=== PATIENT | female | born 1985 | race American Indian/Alaskan Native ===

== ENCOUNTER 2017-01-28 13:12 | Inpatient (IN) | payer MEDICARE, OTHER ==
[2017-01-28] MEDS ORDERED: CATAPRES ONE (13:57)
[2017-01-28] MEDS ORDERED: CATAPRES PO ONE (14:02)
[2017-01-28] MEDS ORDERED: PHENERGAN PR ONE ×2 (14:32→15:31)
[2017-01-28] MEDS ORDERED: NORMODYNE IV ONE ×2 (15:29→17:40)
[2017-01-28 15:40] LABS: Albumin 3.9 g/dL (3.9-5); Albumin/Globulin Ratio 1.5 %; BUN/Creatinine Ratio 5.56; Bilirubin,Total 0.3 mg/dL (0.1-1.2); Calcium 9.2 mg/dL (8.4-10.2); Chloride 93.6 mmol/L (98-107); Potassium 4.7 mmol/L (3.6-5.0); Total Protein 6.5 g/dL (6.3-8.2)
[2017-01-28] MEDS ORDERED: ZOFRAN IV ONE (15:44)
[2017-01-28] MEDS ORDERED: BENADRYL IV ONE (15:44)
[2017-01-28] MEDS ORDERED: DILAUDID IV ONE (15:44)
[2017-01-28] MEDS ORDERED: HALDOL IM ONE (16:13)
[2017-01-28] MEDS ORDERED: PEPCID IV ONE (16:13)
[2017-01-28] MEDS ORDERED: CARAFATE PO ONE (16:13)
--- NOTE | 2017-01-28 16:15 | Emergency Department Report ---
ED General Adult HPI - General Chief complaint: Abdominal Pain Stated complaint: ABD PAIN Time Seen by Provider: 01/28/17 16:07 Source: patient, RN notes reviewed Mode of arrival: Ambulatory Limitations: Other (patient is a poor historian) - History of Present Illness Initial comments: This is a 31-year-old female. The patient is previously unknown to this provider. Patient reports that she just got here from [place] earlier on this morning. She reports that she was receiving medical care at [facility] in [place]. Patient indicated to me that she is supposed to follow up for dialysis in [place], but she does not know the name of her assigned nephrology specialist. She presents to the ER with diffuse abdominal pain. The pain is achy and sharp. It increases with palpation and range of motion. It decreases with rest. There is no headache or neck pain. There is no chest pain. There is chronic shortness of breath which is not a new, worsening or different, patient also describes nausea and vomiting. She indicates no irritative/obstructive urinary symptoms, and she denies hematemesis, bright red blood per rectum. -: Gradual Location: abdomen Quality: aching Consistency: constant Improves with: medication, rest Worsens with: eating Associated Symptoms: malaise, nausea/vomiting, weakness - Related Data Allergies Allergy/AdvReac Type Severity Reaction Status Date / Time No Known Allergies Allergy Verified 01/28/17 13:20 ED Review of Systems ROS: Stated complaint: ABD PAIN Other details as noted in HPI Constitutional: malaise, weakness. denies: fever Eyes: denies: eye discharge ENT: denies: hearing loss Respiratory: denies: cough Cardiovascular: denies: chest pain Gastrointestinal: abdominal pain, nausea, vomiting Genitourinary: as per HPI. denies: dysuria Musculoskeletal: denies: back pain Skin: denies: lesions Neurological: weakness ED Past Medical Hx - Past Medical History Previous Medical History?: No Hx Hypertension: Yes Hx Diabetes: Yes Hx Renal Disease: Yes - Social History Smoking Status: Never Smoker Substance Use Type: None ED Physical Exam - General Limitations: No Limitations General appearance: alert, in distress - Head Head exam: Present: atraumatic, normocephalic - Eye Eye exam: Present: normal appearance, EOMI. Absent: nystagmus - ENT ENT exam: Present: normal exam, normal orophraynx, mucous membranes moist, normal external ear exam - Neck Neck exam: Present: normal inspection, full ROM. Absent: tenderness, meningismus - Respiratory Respiratory exam: Present: normal lung sounds bilaterally. Absent: respiratory distress, wheezes, rales, chest wall tenderness, accessory muscle use, decreased breath sounds, prolonged expiratory - Cardiovascular Cardiovascular Exam: Present: normal rhythm, tachycardia, normal heart sounds. Absent: systolic murmur, diastolic murmur, rubs, gallop - GI/Abdominal GI/Abdominal exam: Present: soft, tenderness, normal bowel sounds, other (there is diffuse abdominal tenderness, there is no rebound, guarding or peritoneal signs.). Absent: distended, guarding, rebound, rigid, pulsatile mass - Extremities Exam Extremities exam: Present: normal inspection, full ROM, normal capillary refill , other (2+ pulses noted in the bilateral upper and lower extremities. AV fistula appreciated in the right upper extremity, positive thrill, no redness, pus or streaking). Absent: pedal edema, joint swelling, calf tenderness - Back Exam Back exam: Present: normal inspection, full ROM. Absent: tenderness, CVA tenderness (R), CVA tenderness (L), muscle spasm, paraspinal tenderness, vertebral tenderness - Neurological Exam Neurological exam: Present: alert, oriented X3, other (Extraocular movements intact. Tongue midline. No facial droop. Facial sensation intact to light touch in the V1, V2, V3 distribution bilaterally. 5 and 5 strength in 4 extremities.. Sensation is intact to light touch in 4 extremities.). Absent: motor sensory deficit - Psychiatric Psychiatric exam: Present: normal affect, normal mood - Skin Skin exam: Present: warm, dry, intact, normal color. Absent: rash ED Course Vital Signs 01/28/17 01/28/17 01/28/17 13:15 13:18 13:34 Temperature 98.5 F 98.3 F Pulse Rate 116 H 112 H Respiratory 24 19 Rate Blood Pressure 242/121 Blood Pressure [Left] O2 Sat by Pulse 96 98 100 Oximetry 01/28/17 01/28/17 01/28/17 13:45 14:01 14:10 Temperature Pulse Rate 113 H 112 H Respiratory 49 H 12 Rate Blood Pressure 263/127 268/127 263/127 Blood Pressure [Left] O2 Sat by Pulse 100 100 Oximetry 01/28/17 01/28/17 01/28/17 14:15 14:31 15:12 Temperature Pulse Rate Respiratory 21 20 15 Rate Blood Pressure 250/121 250/121 250/121 Blood Pressure [Left] O2 Sat by Pulse 96 Oximetry 01/28/17 01/28/17 01/28/17 15:18 16:10 16:18 Temperature 98.7 F Pulse Rate 105 H 100 H Respiratory 18 Rate Blood Pressure 231/128 251/128 Blood Pressure 231/128 [Left] O2 Sat by Pulse 98 Oximetry 01/28/17 01/28/17 01/28/17 16:20 16:30 16:53 Temperature Pulse Rate Respiratory 18 Rate Blood Pressure 235/113 235/113 Blood Pressure [Left] O2 Sat by Pulse 80 L Oximetry 01/28/17 01/28/17 01/28/17 17:00 17:15 17:30 Temperature Pulse Rate Respiratory Rate Blood Pressure 233/118 244/114 249/109 Blood Pressure [Left] O2 Sat by Pulse 94 72 L 77 L Oximetry 01/28/17 01/28/17 01/28/17 17:45 18:01 18:09 Temperature Pulse Rate 106 H Respiratory 17 Rate Blood Pressure 237/122 260/119 Blood Pressure 168/93 [Left] O2 Sat by Pulse 78 L 81 L 97 Oximetry 01/28/17 01/28/17 01/28/17 18:10 18:15 18:30 Temperature Pulse Rate 106 H 107 H Respiratory 28 H 17 Rate Blood Pressure 169/93 221/100 226/122 Blood Pressure [Left] O2 Sat by Pulse 92 98 Oximetry 01/28/17 01/28/17 01/28/17 18:45 19:00 19:15 Temperature Pulse Rate Respiratory 20 15 24 Rate Blood Pressure 226/122 225/123 239/127 Blood Pressure [Left] O2 Sat by Pulse 100 98 100 Oximetry 01/28/17 01/28/17 01/28/17 19:30 19:46 20:00 Temperature Pulse Rate Respiratory 26 H Rate Blood Pressure 235/117 208/117 247/120 Blood Pressure [Left] O2 Sat by Pulse 100 92 100 Oximetry 01/28/17 01/28/17 01/28/17 20:15 20:30 20:45 Temperature Pulse Rate Respiratory Rate Blood Pressure 214/113 171/82 Blood Pressure [Left] O2 Sat by Pulse 100 100 100 Oximetry ED Medical Decision Making - Lab Data Result diagrams: 01/28/17 16:37 01/28/17 15:07 Vital Signs 01/28/17 01/28/17 01/28/17 13:15 13:18 13:34 Temperature 98.5 F 98.3 F Pulse Rate 116 H 112 H Respiratory 24 19 Rate Blood Pressure 242/121 Blood Pressure [Left] O2 Sat by Pulse 96 98 100 Oximetry 01/28/17 01/28/17 01/28/17 13:45 14:01 14:10 Temperature Pulse Rate 113 H 112 H Respiratory 49 H 12 Rate Blood Pressure 263/127 268/127 263/127 Blood Pressure [Left] O2 Sat by Pulse 100 100 Oximetry 01/28/17 01/28/17 01/28/17 14:15 14:31 15:12 Temperature Pulse Rate Respiratory 21 20 15 Rate Blood Pressure 250/121 250/121 250/121 Blood Pressure [Left] O2 Sat by Pulse 96 Oximetry 01/28/17 01/28/17 01/28/17 15:18 16:10 16:18 Temperature 98.7 F Pulse Rate 105 H 100 H Respiratory 18 Rate Blood Pressure 231/128 251/128 Blood Pressure 231/128 [Left] O2 Sat by Pulse 98 Oximetry 01/28/17 01/28/17 01/28/17 16:20 16:30 16:53 Temperature Pulse Rate Respiratory 18 Rate Blood Pressure 235/113 235/113 Blood Pressure [Left] O2 Sat by Pulse 80 L Oximetry 01/28/17 01/28/17 01/28/17 17:00 17:15 17:30 Temperature Pulse Rate Respiratory Rate Blood Pressure 233/118 244/114 249/109 Blood Pressure [Left] O2 Sat by Pulse 94 72 L 77 L Oximetry 01/28/17 01/28/17 01/28/17 17:45 18:01 18:09 Temperature Pulse Rate 106 H Respiratory 17 Rate Blood Pressure 237/122 260/119 Blood Pressure 168/93 [Left] O2 Sat by Pulse 78 L 81 L 97 Oximetry 01/28/17 01/28/17 01/28/17 18:10 18:15 18:30 Temperature Pulse Rate 106 H 107 H Respiratory 28 H 17 Rate Blood Pressure 169/93 221/100 Blood Pressure [Left] O2 Sat by Pulse 92 97 Oximetry Lab Results 01/28/17 01/28/17 01/28/17 Range/Units 15:07 15:07 16:37 WBC 11.5 H (4.5-11.0) K/mm3 RBC 3.15 L (3.65-5.03) M/mm3 Hgb 9.0 L (10.1-14.3) gm/dl Hct 28.7 L (30.3-42.9) % MCV 91 (79-97) fl MCH 29 (28-32) pg MCHC 32 (30-34) % RDW 14.1 (13.2-15.2) % Plt Count 241 (140-440) K/mm3 Lymph % (Auto) 9.2 L (13.4-35.0) % [place] % (Auto) 4.3 (0.0-7.3) % Eos % (Auto) 1.2 (0.0-4.3) % Baso % (Auto) 0.8 (0.0-1.8) % Lymph # 1.1 L (1.2-5.4) K/mm3 [place] # 0.5 (0.0-0.8) K/mm3 Eos # 0.1 (0.0-0.4) K/mm3 Baso # 0.1 (0.0-0.1) K/mm3 Seg Neutrophils % 84.5 H (40.0-70.0) % Seg Neutrophils # 9.7 H (1.8-7.7) K/mm3 Sodium 136 L (137-145) mmol/L Potassium 4.7 (3.6-5.0) mmol/L Chloride 93.6 L (98-107) mmol/L Carbon Dioxide 19 L (22-30) mmol/L Anion Gap 28 mmol/L BUN 44 H (7-17) mg/dL Creatinine 7.9 H (0.7-1.2) mg/dL Estimated GFR 7 ml/min BUN/Creatinine Ratio 5.56 % Glucose 395 H (65-100) mg/dL Calcium 9.2 (8.4-10.2) mg/dL Total Bilirubin 0.30 (0.1-1.2) mg/dL AST 17 (5-40) units/L ALT 24 (7-56) units/L Alkaline Phosphatase 134 H (35-129) units/L Troponin T (0.00-0.029) ng/mL Total Protein 6.5 (6.3-8.2) g/dL Albumin 3.9 (3.9-5) g/dL Albumin/Globulin Ratio 1.5 % Triglycerides (2-149) mg/dL Cholesterol (50-199) mg/dL LDL Cholesterol Direct (50-130) mg/dL HDL Cholesterol (40-59) mg/dL Cholesterol/HDL Ratio % Lipase 106 H (13-60) units/L HCG, Quant < 2 (0-4) mIU/mL 01/28/17 Range/Units 16:37 WBC (4.5-11.0) K/mm3 RBC (3.65-5.03) M/mm3 Hgb (10.1-14.3) gm/dl Hct (30.3-42.9) % MCV (79-97) fl MCH (28-32) pg MCHC (30-34) % RDW (13.2-15.2) % Plt Count (140-440) K/mm3 Lymph % (Auto) (13.4-35.0) % [place] % (Auto) (0.0-7.3) % Eos % (Auto) (0.0-4.3) % Baso % (Auto) (0.0-1.8) % Lymph # (1.2-5.4) K/mm3 [place] # (0.0-0.8) K/mm3 Eos # (0.0-0.4) K/mm3 Baso # (0.0-0.1) K/mm3 Seg Neutrophils % (40.0-70.0) % Seg Neutrophils # (1.8-7.7) K/mm3 Sodium (137-145) mmol/L Potassium (3.6-5.0) mmol/L Chloride (98-107) mmol/L Carbon Dioxide (22-30) mmol/L Anion Gap mmol/L BUN (7-17) mg/dL Creatinine (0.7-1.2) mg/dL Estimated GFR ml/min BUN/Creatinine Ratio % Glucose (65-100) mg/dL Calcium (8.4-10.2) mg/dL Total Bilirubin (0.1-1.2) mg/dL AST (5-40) units/L ALT (7-56) units/L Alkaline Phosphatase (35-129) units/L Troponin T 0.209 H* (0.00-0.029) ng/mL Total Protein (6.3-8.2) g/dL Albumin (3.9-5) g/dL Albumin/Globulin Ratio % Triglycerides 193 H (2-149) mg/dL Cholesterol 192 (50-199) mg/dL LDL Cholesterol Direct 82 (50-130) mg/dL HDL Cholesterol 72 H (40-59) mg/dL Cholesterol/HDL Ratio 2.66 % Lipase (13-60) units/L HCG, Quant (0-4) mIU/mL - EKG Data -: EKG Interpreted by Wi - EKG Data 01/28/17 18:53 Normal sinus, 95 bpm, borderline rightward axis, T-wave inversion in aVL, biphasic T-wave in V2, peak T waves in the lateral leads, borderline high left ventricular voltage, abnormal EKG, not morphologically consistent with STEMI. - Radiology Data Radiology results: report reviewed, image reviewed Noncontrast CT scan of the abdomen and pelvis is negative for acute disease. X-ray chest demonstrates pulmonary vascular congestion. Cardiomegaly is noted. Cardiomegaly is identified on CT scan of the abdomen/pelvis, subcutaneous edema is noted, small amount of ascites is noted. There is a unilateral right kidney. - Medical Decision Making Differential diagnosis: Hypertensive urgency, chronic renal insufficiency, narcotic bowel syndrome, cyclic vomiting syndrome, diabetic gastroparesis, GERD/ gastritis Assessment and plan: 31-year-old female, reports that she recently moved here from [place], does not have reliable outpatient dialysis follow-up, CT scan of the abdomen and pelvis to the [facility] surgical disease, required multiple rounds of IV blood pressure medication, may have a component of diabetic gastroparesis. Elevated troponin is appreciated, this is most likely secondary to chronic renal insufficiency. We attempted to contact medical records department at [facility] in [place], however they're closed today, and we are unable to obtain patient's medical records. Patient will require admission for blood pressure control, and inability to tolerate liquid feeds. Case is discussed with the Hospital physician, Dr. Terry, who accepts the patient to his service. Case is discussed with nephrology on-call, Dr. Carcamo, who agrees with plan for admission, and he indicates he will follow in consultation. Abdominal pain is most likely secondary to subcutaneous edema secondary to renal insufficiency. X-ray the chest suggest pulmonary vascular congestion, I doubt infectious etiology given the lack of focal pulmonary findings, and CT scan of the abdomen and pelvis does not suggest pneumonia as well on the lung bases. Critical care attestation.: If time is entered above; I have spent that time in minutes in the direct care of this critically ill patient, excluding procedure time. ED Disposition Clinical Impression: Hypertensive urgency, Intractable abdominal pain Disposition: OP ADMIT IP TO THIS HOSP Is pt being admited?: Yes Condition: Good
[2017-01-28 16:47] LABS: Basophils % (Auto) 0.8 % (0.0-1.8); Eosinophils % (Auto) 1.2 % (0.0-4.3); Hematocrit 28.7 % (30.3-42.9); Mean Corpuscular HGB Conc 32 % (30-34); Mean Corpuscular Hemoglobin 29 pg (28-32); Mean Corpuscular Volume 91 fl (79-97); Platelet Count 241 K/mm3 (140-440); Red Blood Count 3.15 M/mm3 (3.65-5.03); Red Cell Distribution Width 14.1 % (13.2-15.2); White Blood Count 11.5 K/mm3 (4.5-11.0)
--- NOTE | 2017-01-28 17:02 | Cat Scan Report ---
FINAL REPORT EXAM: CT ABDOMEN PELVIS WO CON HISTORY: abd pain TECHNIQUE: CT abdomen and pelvis with oral and intravenous contrast PRIORS: None. FINDINGS: No acute abnormality identified in the lung bases. No focal abnormality identified within the liver parenchyma. The spleen demonstrates normal size and attenuation. No pancreatic abnormalities seen. There is unilateral right kidney. Renal vascular calcifications are present. There is some atherosclerotic calcifications also noted at the SMA and abdominal aorta. Abdominal aorta is normal in caliber. No pathologically enlarged lymph nodes are identified. No signs of free fluid or free air No evidence of small bowel dilatation. The appendix is identified and is normal in size no adjacent inflammatory change seen. Urinary bladder is unremarkable. There is small amount of free fluid present in the pelvis. Small amount of free fluid is also seen within the right upper quadrant and Morison's pouch. There is subcutaneous edema within the soft tissues of the abdomen. IMPRESSION: Small amount of ascites. No specific etiology identified Subcutaneous edema Unilateral right kidney. Atherosclerotic changes along with renal vascular calcifications.
--- NOTE | 2017-01-28 17:14 | XRay Report ---
FINAL REPORT EXAM: XR CHEST 1V AP HISTORY: upper abd pain htn TECHNIQUE: Chest single AP view PRIORS: Correlated with a prior CT abdomen and pelvis of January 28, 2017 FINDINGS: Cardiac silhouette is prominent in size. There is bilateral pulmonary vascular congestion. There is diffuse bilateral interstitial prominence. Small right effusion seen on the CT is not readily identifiable on the chest radiograph. IMPRESSION: Prominent heart size is borderline cardiomegaly Pulmonary vascular congestion with interstitial prominence. Findings likely reflect pulmonary venous hypertension with edema which could be cardiogenic in origin. Superimposed infectious process is difficult to exclude
[2017-01-28] MEDS ORDERED: APRESOLINE IV ONE (18:00)
[2017-01-28] MEDS ORDERED: APRESOLINE ONE (18:07)
[2017-01-28] MEDS: CARDENE 50 MG in NACL 0.9% 250ML 230 ML IV SCH (20:07)
[2017-01-28] MEDS: DILAUDID IV PRN (20:26)
[2017-01-28] MEDS ORDERED: DILAUDID ONE (20:27)
[2017-01-28] MEDS ORDERED: NACL 0.9% 100 ML IV PRN (20:44)
--- NOTE | 2017-01-28 23:54 | History and Physical Report ---
History of Present Illness Date of examination: 01/28/17 Date of admission: 01/28/17 17:42 Medications and Allergies Allergies Allergy/AdvReac Type Severity Reaction Status Date / Time No Known Allergies Allergy Verified 01/28/17 13:20 Active Meds: Active Medications Hydromorphone HCl (Dilaudid) 0.5 mg IV Q3H PRN PRN Reason: Pain , Severe (7-10) Last Admin: 01/28/17 20:26 Dose: 0.5 mg Nicardipine HCl 50 mg/ Sodium (Chloride) 250 mls @ 25 mls/hr IV TITR JESUS; 5 MG/ HR PRN Reason: Protocol Last Titration: 01/28/17 20:26 Dose: 7.5 mg/hr, 37.5 mls/hr Sodium Chloride (Nacl 0.9%) 100 mls @ 999 mls/hr IV DEE PRN PRN Reason: Hypotension Exam - Constitutional Vitals: Temp Pulse Resp BP Pulse Ox 98.9 F 107 H 26 H 171/82 100 01/28/17 21:00 01/28/17 18:15 01/28/17 19:30 01/28/17 20:30 01/28/17 20:45 Results - Labs CBC & Chem 7: 01/28/17 16:37 01/28/17 15:07 Labs: Laboratory Last Values WBC 11.5 K/mm3 (4.5-11.0) H 01/28/17 16:37 RBC 3.15 M/mm3 (3.65-5.03) L 01/28/17 16:37 Hgb 9.0 gm/dl (10.1-14.3) L 01/28/17 16:37 Hct 28.7 % (30.3-42.9) L 01/28/17 16:37 MCV 91 fl (79-97) 01/28/17 16:37 MCH 29 pg (28-32) 01/28/17 16:37 MCHC 32 % (30-34) 01/28/17 16:37 RDW 14.1 % (13.2-15.2) 01/28/17 16:37 Plt Count 241 K/mm3 (140-440) 01/28/17 16:37 Lymph % (Auto) 9.2 % (13.4-35.0) L 01/28/17 16:37 [place] % (Auto) 4.3 % (0.0-7.3) 01/28/17 16:37 Eos % (Auto) 1.2 % (0.0-4.3) 01/28/17 16:37 Baso % (Auto) 0.8 % (0.0-1.8) 01/28/17 16:37 Lymph # 1.1 K/mm3 (1.2-5.4) L 01/28/17 16:37 [place] # 0.5 K/mm3 (0.0-0.8) 01/28/17 16:37 Eos # 0.1 K/mm3 (0.0-0.4) 01/28/17 16:37 Baso # 0.1 K/mm3 (0.0-0.1) 01/28/17 16:37 Seg Neutrophils % 84.5 % (40.0-70.0) H 01/28/17 16:37 Seg Neutrophils # 9.7 K/mm3 (1.8-7.7) H 01/28/17 16:37 Sodium 136 mmol/L (137-145) L 01/28/17 15:07 Potassium 4.7 mmol/L (3.6-5.0) 01/28/17 15:07 Chloride 93.6 mmol/L (98-107) L 01/28/17 15:07 Carbon Dioxide 19 mmol/L (22-30) L 01/28/17 15:07 Anion Gap 28 mmol/L 01/28/17 15:07 BUN 44 mg/dL (7-17) H 01/28/17 15:07 Creatinine 7.9 mg/dL (0.7-1.2) H 01/28/17 15:07 Estimated GFR 7 ml/min 01/28/17 15:07 BUN/Creatinine Ratio 5.56 % 01/28/17 15:07 Glucose 395 mg/dL (65-100) H 01/28/17 15:07 Calcium 9.2 mg/dL (8.4-10.2) 01/28/17 15:07 Total Bilirubin 0.30 mg/dL (0.1-1.2) 01/28/17 15:07 AST 17 units/L (5-40) 01/28/17 15:07 ALT 24 units/L (7-56) 01/28/17 15:07 Alkaline Phosphatase 134 units/L (35-129) H 01/28/17 15:07 Troponin T 0.209 ng/mL (0.00-0.029) H* 01/28/17 16:37 Total Protein 6.5 g/dL (6.3-8.2) 01/28/17 15:07 Albumin 3.9 g/dL (3.9-5) 01/28/17 15:07 Albumin/Globulin Ratio 1.5 % 01/28/17 15:07 Triglycerides 193 mg/dL (2-149) H 01/28/17 16:37 Cholesterol 192 mg/dL (50-199) 01/28/17 16:37 LDL Cholesterol Direct 82 mg/dL (50-130) 01/28/17 16:37 HDL Cholesterol 72 mg/dL (40-59) H 01/28/17 16:37 Cholesterol/HDL Ratio 2.66 % 01/28/17 16:37 Lipase 106 units/L (13-60) H 01/28/17 15:07 HCG, Quant < 2 mIU/mL (0-4) 01/28/17 15:07
[2017-01-29] MEDS: COREG PO SCH ×3 (00:15→22:59)
[2017-01-29] MEDS: CARDENE 50 MG in NACL 0.9% 250ML 230 ML IV SCH (04:54)
--- NOTE | 2017-01-29 07:51 | Event Note ---
Date: 01/28/17 See H/p in reports HTN emergency ESRD on HD Recently moved from [place] without HD arrangements made Case mgmt to arrange for HD as outpatient
--- NOTE | 2017-01-29 09:18 | History and Physical Report ---
CHIEF COMPLAINT: Abdominal pain of 1 day duration. HISTORY OF PRESENT ILLNESS: A 31-year-old -[place] female who recently moved from [place] without arranging for hemodialysis as outpatient, comes in for abdominal pain of 1 day duration. 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 Abdominal pain is diffuse, occasionally sharp, about 10/10, increases with palpation and range of motion. Pain worsened with palpation. No nausea, no vomiting. Also, shortness of breath present. The patient did not get dialysis for at least 1 week. The patient not able to tell me the cause of her renal failure. Orthopnea present. Also, her blood pressure has been running high recently. PAST MEDICAL HISTORY: Significant for end-stage renal disease, hypertension, diabetes. PAST SURGICAL HISTORY: AV fistula. SOCIAL HISTORY: Does not smoke. No alcohol, no recreational drugs. FAMILY HISTORY: Significant for hypertension. REVIEW OF SYSTEMS: All 14-point review of systems is done, other than abdominal pain, nausea, vomiting occasionally, review of systems is essentially negative. A 14-point review of systems done. PHYSICAL EXAMINATION: GENERAL: Young female, in slight distress secondary to pain. VITAL SIGNS: Blood pressure was 230/113 initially. Pulse is 101, temperature is 98, respiratory rate is 15, sats are 100%. HEENT: Unremarkable. Slightly pale mucous membranes. NECK: Supple. No lymphadenopathy, no thyromegaly. LUNGS: Clear to auscultation and percussion. Good air entry. CARDIOVASCULAR: S1, S2 heard. No gallop, no murmur, no rub. Apical impulse in left fifth intercostal space and midclavicular line. ABDOMEN: Soft, slightly tender in the periumbilical area, but no guarding. No rigidity. Bowel sounds are normal. EXTREMITIES: Good pedal pulses. No pedal edema. CENTRAL NERVOUS SYSTEM: Alert and oriented x 4, nonfocal exam. LABORATORY DATA: Significant for hemoglobin of 9.0, hematocrit of 28.7, white count of . Sodium of 136, potassium of 4.7, chloride of 93.6, bicarbonate of 19, BUN and creatinine of 44 and 7.9, alkaline phosphatase is 134. Triglycerides are 193, HDL cholesterol is 72. Lipase is 106. Troponin is slightly elevated at 0.209. ASSESSMENT AND PLAN: 1. Hypertensive emergency. The patient was initially managed with IV hydralazine and IV labetalol. Because the blood pressure was not responding to IV labetalol and IV hydralazine, the patient was started on Cardene drip to titrate the blood pressure to at least 160/90. The patient also initiated on blood pressure medications in the form of losartan 100 mg daily, Coreg 12.5 p.o. b.i.d., and amlodipine 10 mg p.o. daily, which the patient to be discharged on those medications. Also, the patient to be compliant. 2. End-stage renal disease, on hemodialysis. Hemodialysis arrangement was not made by the patient when she moved from [place] to [place]. The patient to get hemodialysis arrangements to be made. Nephrology, Dr. Martínez consulted for continued hemodialysis in the hospital. 3. Elevated troponin, nonspecific secondary to end-stage renal disease. We will not do any further workup. 4. Acute abdominal pain, nonspecific, should resolve with hemodialysis. Surgical consult if necessary. CT of the abdomen if necessary. 5. Deep venous thrombosis prophylaxis, heparin 5000 q.12h. CRITICAL CARE STATEMENT: There is high probability of a clinically significant sudden or life-threatening deterioration of the cardiorespiratory systems required my full and direct attention, intervention, and personal management. The aggregate critical care time was 35 minutes. The time is in addition to time spent performing reported procedures, but include the followin. Data review and interpretation. 2. The patient's assessment and monitoring of vital signs. 3. Documentation. 4. Medication orders and management. JOB# [id number] JUDITH/MICHELLE
[2017-01-29] MEDS: DILAUDID IV PRN ×3 (09:30→18:13)
--- NOTE | 2017-01-29 09:37 | Progress Note ---
Assessment and Plan Malignant hypertension - Placed on a Cardizem drip on admission to titrate blood pressure below 1 60 x 90 - Also initiated losartan 100 MG daily, Coreg 12.5 by mouth twice a day and amlodipine 10 mg by mouth daily - Continue to monitor BP, weaned off Cardene drip this am - Adjust BP meds needed End stage renal disease on hemodialysis - Patient recently moved from [place] to [place] for 2 weeks visit - Does not have outpatient dialysis set up yet - Consulted nephrology for dialysis - Notified child welfare caseworker for outpatient dialysis setup Elevated troponin - Likely secondary to decreased clearance from end-stage renal disease -Continue to trend, patient denies any chest pain - Monitor clinically Acute abdominal pain - likely from gastroparesis, CT abdomen and pelvis did not show any acute event - will place on reglan, continue to monitor for now Diabetes mellitus type 2 - Placed on an ADA diet - Start on sliding scale of insulin - Adjust insulin dose as needed DVT prophylaxis -Continue on heparin Brief history: This is a 31-year-old female with history of end stage renal disease on dialysis who recently moved from [place] presented to the hospital with sudden onset of abdominal pain, she also missed her dialysis for at least one week. Radiological data: Chest x-ray on 01/28/2017 showed prominent heart size, pulmonary vasculature congestion with interstitial prominence. CT scan of abdomen and pelvis on 01/28/2017 showed small ascites and subcutaneous edema. Unilateral right kidney atherosclerotic changes along with renal vasculature calcifications. No other specific etiology identified. Current meds: Generic Name Dose Route Start Last Admin Trade Name Freq PRN Reason Stop Dose Admin Amlodipine Besylate 10 mg 01/29/17 10:00 Norvasc PO QDAY [facility] Carvedilol 12.5 mg 01/29/17 01:00 01/29/17 00:15 Coreg PO Not Given BID JESUS Hydromorphone HCl 0.5 mg 01/28/17 20:20 01/28/17 20:26 Dilaudid IV 0.5 mg Q3H PRN Administration Pain , Severe (7-10) Nicardipine HCl 50 mg/ Sodium 250 mls @ 25 mls/hr 01/28/17 20:00 01/29/17 04: 54 Chloride IV 7.5 mg/hr TITR JESUS 37.5 mls/hr Protocol Administration 5 MG/HR Sodium Chloride 100 mls @ 999 mls/hr 01/28/17 20:44 Nacl 0.9% IV DEE PRN Hypotension Insulin Human Regular 0 units 01/29/17 09:00 Novolin R SUB-Q ACHS [facility] Protocol Losartan Potassium 100 mg 01/29/17 10:00 Cozaar PO QDAY [facility] Home Medications Medication Instructions Recorded Confirmed Last Taken Insulin Glargine [Lantus] 30 unit SUB-Q QHS 01/29/17 01/29/17 Unknown Insulin Lispro [HumaLOG VIAL] 10 units SQ AC 01/29/17 01/29/17 Unknown Subjective Date of service: 01/29/17 Interval history: Patient seen and examined. Medical records and medication list reviewed. No acute event overnight noted by the RN. Patient denies any chest pain or difficulty breathing. Patient is tolerating diet. states that she has h/o gastroparesis, off cardene drip since am Discussed plan of care at bedside with patient. Objective - Exam Narrative Exam: GENERAL: well-developed and well-nourished AAF lying on bed appeared to be in no discomfort. HEENT: Normocephalic. Atraumatic. No conjunctival congestion or icterus. Patient has moist mucous membranes. NECK: Supple. Trachea midline. CHEST/LUNGS: Clear to auscultated bilaterally, breathing nonlabored. No wheezes crackles or rhonchi. HEART/CARDIOVASCULAR: Regular in rate and rhythm. S1 and S2 positive. ABDOMEN: Abdomen is soft, nontender. Patient has normal bowel sounds. SKIN: There is no rash. Warm and dry. NEURO: No focal motor deficit. Follows command. MUSCULOSKELETAL: No joint effusion or tenderness. EXTRIMITY: No edema, no cyanosis or clubbing. PSYCH: Cooperative. - Constitutional Vitals: Vital Signs - 12hr 01/28/17 01/28/17 01/28/17 21:45 22:00 22:15 Temperature Pulse Rate 99 H 95 H 94 H Respiratory 14 13 13 Rate Blood Pressure 104/64 98/60 98/60 O2 Sat by Pulse 98 98 97 Oximetry 01/28/17 01/28/17 01/28/17 22:31 22:45 23:00 Temperature Pulse Rate 94 H 100 H 106 H Respiratory 13 19 18 Rate Blood Pressure 117/62 120/57 132/65 O2 Sat by Pulse 99 97 97 Oximetry 01/28/17 01/28/17 01/28/17 23:15 23:31 23:45 Temperature Pulse Rate 109 H 106 H 102 H Respiratory 21 14 15 Rate Blood Pressure 132/65 142/71 149/76 O2 Sat by Pulse 99 99 98 Oximetry 01/29/17 01/29/17 01/29/17 00:00 00:15 00:31 Temperature 98.8 F Pulse Rate 103 H 100 H 102 H Respiratory 13 14 17 Rate Blood Pressure 135/71 135/71 135/71 O2 Sat by Pulse 100 99 100 Oximetry 01/29/17 01/29/17 01/29/17 00:45 01:00 01:15 Temperature Pulse Rate 101 H 98 H 97 H Respiratory 13 12 13 Rate Blood Pressure 140/74 134/72 134/72 O2 Sat by Pulse 100 100 100 Oximetry 01/29/17 01/29/17 01/29/17 01:31 01:45 02:00 Temperature Pulse Rate 112 H 101 H 99 H Respiratory 17 14 15 Rate Blood Pressure 140/74 170/87 170/87 O2 Sat by Pulse 100 100 100 Oximetry 01/29/17 01/29/17 01/29/17 02:15 02:31 02:45 Temperature Pulse Rate 101 H 104 H 102 H Respiratory 14 15 12 Rate Blood Pressure 161/84 153/85 179/84 O2 Sat by Pulse 100 100 100 Oximetry 01/29/17 01/29/17 01/29/17 03:00 03:15 03:31 Temperature Pulse Rate 99 H 99 H 101 H Respiratory 13 13 14 Rate Blood Pressure 166/84 166/84 159/82 O2 Sat by Pulse 100 100 100 Oximetry 01/29/17 01/29/17 01/29/17 03:45 04:00 04:15 Temperature 98.9 F Pulse Rate 99 H 100 H 103 H Respiratory 12 14 13 Rate Blood Pressure 175/92 175/92 169/125 O2 Sat by Pulse 100 100 100 Oximetry 01/29/17 01/29/17 01/29/17 04:31 04:45 05:00 Temperature Pulse Rate 101 H 99 H 100 H Respiratory 14 14 15 Rate Blood Pressure 169/125 147/79 147/79 O2 Sat by Pulse 100 100 100 Oximetry 01/29/17 01/29/17 01/29/17 05:15 05:31 05:45 Temperature Pulse Rate 99 H 98 H 100 H Respiratory 13 14 14 Rate Blood Pressure 149/77 154/80 154/75 O2 Sat by Pulse 100 100 100 Oximetry 01/29/17 01/29/17 01/29/17 05:51 06:00 06:11 Temperature Pulse Rate 99 H 101 H 110 H Respiratory 15 15 20 Rate Blood Pressure 154/75 159/81 159/81 O2 Sat by Pulse 100 100 100 Oximetry 01/29/17 01/29/17 01/29/17 06:20 06:31 06:40 Temperature Pulse Rate 105 H 103 H 102 H Respiratory 16 13 10 L Rate Blood Pressure 163/75 163/75 156/76 O2 Sat by Pulse 100 100 100 Oximetry 01/29/17 01/29/17 01/29/17 06:51 07:00 07:11 Temperature Pulse Rate 100 H 100 H 100 H Respiratory 13 14 14 Rate Blood Pressure 156/76 156/76 150/80 O2 Sat by Pulse 100 100 100 Oximetry 01/29/17 01/29/17 01/29/17 07:20 07:31 07:40 Temperature Pulse Rate 100 H 99 H 99 H Respiratory 12 13 13 Rate Blood Pressure 141/74 141/74 147/72 O2 Sat by Pulse 100 100 100 Oximetry 01/29/17 01/29/17 01/29/17 07:51 08:00 08:11 Temperature Pulse Rate 103 H 100 H 98 H Respiratory 17 12 13 Rate Blood Pressure 147/72 147/73 147/73 O2 Sat by Pulse 100 100 100 Oximetry 01/29/17 01/29/17 08:30 08:46 Temperature 98.8 F Pulse Rate Respiratory Rate Blood Pressure O2 Sat by Pulse 100 Oximetry - Labs CBC & Chem 7: 01/28/17 16:37 01/28/17 15:07 Labs: Abnormal lab results 01/28/17 Range/Units 23:20 POC Glucose 459 H (70-105)
[2017-01-29] MEDS: COZAAR PO SCH (09:38)
[2017-01-29] MEDS: NORVASC PO SCH (09:39)
--- NOTE | 2017-01-29 11:09 | Consultation ---
History of Present Illness Consult date: 01/29/17 Requesting physician: TATA POE Reason for consult: other (Hypertensive Emergency) History of present illness: PULMONARY/CCM CONSULT NOTE (Full dictation # [id number]) Please see dictated notes for full details Medications and Allergies Allergies Allergy/AdvReac Type Severity Reaction Status Date / Time No Known Allergies Allergy Verified 01/28/17 13:20 Home Medications Medication Instructions Recorded Confirmed Last Taken Type Insulin Glargine [Lantus] 30 unit SUB-Q QHS 01/29/17 01/29/17 Unknown History Insulin Lispro [HumaLOG VIAL] 10 units SQ AC 01/29/17 01/29/17 Unknown History Active Meds: Active Medications Amlodipine Besylate (Norvasc) 10 mg PO QDAY [facility] Last Admin: 01/29/17 09:39 Dose: 10 mg Carvedilol (Coreg) 12.5 mg PO BID JESUS Last Admin: 01/29/17 09:39 Dose: 12.5 mg Hydromorphone HCl (Dilaudid) 0.5 mg IV Q3H PRN PRN Reason: Pain , Severe (7-10) Last Admin: 01/29/17 09:30 Dose: 0.5 mg Nicardipine HCl 50 mg/ Sodium (Chloride) 250 mls @ 25 mls/hr IV TITR JESUS; 5 MG/ HR PRN Reason: Protocol Last Admin: 01/29/17 04:54 Dose: 7.5 mg/hr, 37.5 mls/hr Sodium Chloride (Nacl 0.9%) 100 mls @ 999 mls/hr IV DEE PRN PRN Reason: Hypotension Insulin Human Regular (Novolin R) 0 units SUB-Q ACHS JESUS PRN Reason: Protocol Last Admin: 01/29/17 09:40 Dose: 3 units Losartan Potassium (Cozaar) 100 mg PO QDAY [facility] Last Admin: 01/29/17 09:38 Dose: 100 mg Physical Examination Vital signs: Vital Signs Temp Pulse Resp BP Pulse Ox 98.5 F 116 H 24 242/121 96 01/28/17 13:15 01/28/17 13:15 01/28/17 13:15 01/28/17 13:15 01/28/17 13:15 Results - Laboratory Findings CBC and BMP: 01/29/17 12:26 01/29/17 12:26 Abnormal lab findings: Abnormal Labs 01/28/17 23:20 POC Glucose 459 H
[2017-01-29 11:46] LABS: Bacteria,Urine 1+ /HPF (Negative); Bilirubin,Urine NEG (Negative); Blood,Urine NEG (Negative); Ketones,Urine TR mg/dL (Negative); Leukocyte Esterase,Urine NEG (Negative); Nitrite,Urine NEG (Negative); Urobilinogen,Urine < 2.0 mg/dL (<2.0)
[2017-01-29 11:48] LABS: Protein,Urine >500 mg/dL (Negative)
[2017-01-29] MEDS: ZOFRAN IV PRN (12:00)
[2017-01-29 12:36] LABS: Hematocrit 29.4 % (30.3-42.9); Hemoglobin 9.4 gm/dl (10.1-14.3)
[2017-01-29 13:30] LABS: BUN/Creatinine Ratio 6.15; Calcium 9.7 mg/dL (8.4-10.2); Chloride 97.5 mmol/L (98-107); Potassium 4.4 mmol/L (3.6-5.0)
--- NOTE | 2017-01-29 16:29 | XRay Report ---
AP CHEST: HISTORY: Cough, congestion Borderline cardiomegaly is present. Cardiomegaly and pulmonary venous congestion have resolved since 01/28/17 exam. The lungs are clear. No evidence for CHF or pneumothorax. IMPRESSION: Borderline heart size. Lungs clear.
[2017-01-29] MEDS ORDERED: INSULIN LISPRO 10 UNIT SQ SCH (16:36)
--- NOTE | 2017-01-29 17:17 | Consultation ---
History of Present Illness - Reason for Consult Consult date: 01/29/17 end stage renal disease, accelerated hypertension - History of Present Illness 31-year-old female with ESRD on HD on MWF schedule at HD center in [place], [place] here on a 2 week visit admitted after she presented with worsening SOB x 1 day duration and diffuse abdominal pain/in association with nausea and vomiting. The pain is achy and sharp. It increases with palpation and range of motion. It decreases with rest. Her last HD was on Sunday. Has AVF for dialysis. Past History Past Medical History: hypertension, other (ESRD x 3 years) Past Surgical History: Other (AVF) Social history: denies: smoking, alcohol abuse, IV drug use Family history: no significant family history. denies: CAD Medications and Allergies Allergies Allergy/AdvReac Type Severity Reaction Status Date / Time No Known Allergies Allergy Verified 01/28/17 13:20 Home Medications Medication Instructions Recorded Confirmed Last Taken Type Insulin Glargine [Lantus] 30 unit SUB-Q QHS 01/29/17 01/29/17 Unknown History Insulin Lispro [HumaLOG VIAL] 10 units SQ AC 01/29/17 01/29/17 Unknown History Active Meds: Active Medications Amlodipine Besylate (Norvasc) 10 mg PO QDAY [facility] Last Admin: 01/29/17 09:39 Dose: 10 mg Carvedilol (Coreg) 12.5 mg PO BID [facility] Last Admin: 01/29/17 09:39 Dose: 12.5 mg Famotidine (Pepcid) 20 mg PO DAILY [facility] Heparin Sodium (Porcine) (Heparin) 5,000 unit SUB-Q Q12HR [facility] Hydromorphone HCl (Dilaudid) 0.5 mg IV Q3H PRN PRN Reason: Pain , Severe (7-10) Last Admin: 01/29/17 12:30 Dose: 0.5 mg Sodium Chloride (Nacl 0.9%) 100 mls @ 999 mls/hr IV DEE PRN PRN Reason: Hypotension Insulin Aspart (Novolog) 10 units SUB-Q AC [facility] Insulin Detemir (Levemir) 15 units SUB-Q QHS [facility] Insulin Human Regular (Novolin R) 0 units SUB-Q ACHS JESUS PRN Reason: Protocol Last Admin: 01/29/17 14:13 Dose: Not Given Losartan Potassium (Cozaar) 100 mg PO QDAY [facility] Last Admin: 01/29/17 09:38 Dose: 100 mg Ondansetron HCl (Zofran) 4 mg IV Q6H PRN PRN Reason: Nausea And Vomiting Last Admin: 01/29/17 12:00 Dose: 4 mg Review of Systems Constitutional: no weight loss, no weight gain, no fever, no chills Ears, nose, mouth and throat: no ear pain, no ear discharge, no tinnitis, no nose pain, no nasal congestion Cardiovascular: shortness of breath, no chest pain, no orthopnea, no palpitations Respiratory: no hemoptysis, no wheezing Gastrointestinal: nausea, vomiting, no diarrhea, no constipation Genitourinary Female: urgency, no dysuria, no urinary frequency Rectal: no incontinence, no bleeding Musculoskeletal: no neck stiffness, no neck pain, no shooting arm pain Integumentary: no rash, no pruritis, no redness Neurological: no paralysis, no weakness, no numbness, no tingling Psychiatric: no anxiety, no memory loss, no change in sleep habits, no sleep disturbances Endocrine: no cold intolerance, no heat intolerance Hematologic/Lymphatic: no easy bruising, no easy bleeding Exam - Vital Signs Vital signs: Vital Signs Temp Pulse Resp BP Pulse Ox 98.5 F 116 H 24 242/121 96 01/28/17 13:15 01/28/17 13:15 01/28/17 13:15 01/28/17 13:15 01/28/17 13:15 - General Appearance General appearance: well-developed, well-nourished, appears stated age EENT: PERRL, mucous membranes moist Neck: Present: neck supple, trachea midline. Absent: JVD/HJR, Masses Respiratory: Rales, Other (no wheezing ) Heart: regular, normal heart rate, S1S2, no murmurs Gastrointestinal: Present: normoactive bowel sounds. Absent: tenderness, distended Integumentary: no rash, warm and dry Neurologic: no focal deficit, alert and oriented x3, gait normal, strength 5/5 Musculoskeletal: Absent: deformities, joint swelling Psychiatric: mood/affect appropriate, cooperative Results - Lab Results 01/29/17 12:26 01/29/17 12:26 Most recent lab results Calcium 9.7 mg/dL (8.4-10.2) 01/29/17 12:26 Assessment and Plan 1. ESRD on HD 2, Malignant HTN 3. Fluid overload 4. Anemia of ESRD 5. Nausea/vomiting Plan: HD today 3-4 L fluid removal requested Epogen on dialysis Wean off Cardene drip after dialysis Resume her home B meds-Clonidine patch, Hydrazine and Labetalol Discussed with sports manager--out pt HD has been arranged by her [place] [facility] in a center in [place]. Thank you for the consult
[2017-01-29] MEDS: PEPCID PO SCH (19:37)
[2017-01-29] MEDS ORDERED: NON-FORMULARY (Insulin Glargine 15 UNIT) SUB-Q SCH (22:00)
[2017-01-29] MEDS: HEPARIN SUB-Q SCH (23:03)
[2017-01-29] MEDS: LEVEMIR SUB-Q SCH (23:04)
[2017-01-30] MEDS: DILAUDID IV PRN ×3 (09:01→14:37)
[2017-01-30] MEDS: ZOFRAN IV PRN ×3 (09:02→22:49)
[2017-01-30] MEDS: NOVOLOG SUB-Q SCH ×3 (11:08→17:53)
[2017-01-30] MEDS: PEPCID PO SCH (11:09)
[2017-01-30] MEDS: COREG PO SCH (11:09)
[2017-01-30] MEDS: COZAAR PO SCH (11:10)
[2017-01-30] MEDS: NORVASC PO SCH (11:10)
[2017-01-30] MEDS: HEPARIN SUB-Q SCH ×2 (11:12→22:07)
[2017-01-30] MEDS: APRESOLINE IV PRN ×2 (11:15→23:52)
--- NOTE | 2017-01-30 11:28 | Progress Note ---
Assessment and Plan 1. ESRD on HD 2, Malignant HTN 3. Fluid overload 4. Anemia of ESRD 5. Nausea/vomiting/ gastropharesis exacerbation 6. Abdominal pain Plan: HD on MWF schedule Epogen on dialysis Consider GI eval for peristent abdominal pain/N/V Subjective Date of service: 01/30/17 Interval history: C/o abdominal pain, N/V Objective - Vital Signs Vital signs: Vital Signs - 12hr 01/29/17 01/30/17 01/30/17 23:55 03:42 07:31 Temperature 98.7 F 98.2 F 98.7 F Pulse Rate 91 H 85 86 Respiratory 14 14 20 Rate Blood Pressure 156/82 178/90 188/98 O2 Sat by Pulse 95 99 97 Oximetry 01/30/17 01/30/17 01/30/17 09:01 09:31 10:59 Temperature Pulse Rate Respiratory 16 16 Rate Blood Pressure O2 Sat by Pulse 100 Oximetry 01/30/17 01/30/17 01/30/17 11:09 11:10 11:15 Temperature Pulse Rate Respiratory Rate Blood Pressure 188/99 188/99 188/99 O2 Sat by Pulse Oximetry - General Appearance General appearance: well-developed, well-nourished, appears stated age EENT: PERRL, mucous membranes moist Neck: no JVD, no thyromegaly, no carotid bruit, supple Respiratory: Present: Clear to Ascultation Cardiology: regular, normal heart rate, S1S2, no murmurs Gastrointestinal: normoactive bowel sounds, no distended Integumentary: no rash, warm and dry Neurologic: no focal deficit, alert and oriented x3, reflexes 2+ and symmetric, gait normal, strength 5/5 - Lab 01/29/17 12:26 01/29/17 12:26 Most recent lab results Calcium 9.7 mg/dL (8.4-10.2) 01/29/17 12:26
--- NOTE | 2017-01-30 14:02 | Consultation ---
PULMONARY CRITICAL CARE EVALUATION CONSULTING PHYSICIAN: Rylan Terry MD REASON FOR CONSULTATION: Hypertensive emergency, need for ICU admission for Cardene drip. CHIEF COMPLAINT AND HISTORY OF PRESENT ILLNESS: The patient is a 31-year-old -[place] female with past medical according to her significant for end-stage renal disease, on dialysis, but also diabetes with gastroparesis. She just took a bus into town from [place], [place] yesterday. She states just before getting into stop here in this area, she had eaten half of a sandwich, she stated that soon after she began to vomit, complained of abdominal pain. It was tender to touch. She denied any fevers or chills prior. She denied any other symptoms prior. She states she has been compliant with her medications. She did not miss any of her dialysis sessions and she had her last dialysis on Sunday. She denied any hematemesis. She was evaluated in the Emergency Room and amongst other things, she was found to be significantly hypertensive, blood pressures in the 230 systolic and required a Cardene drip. X-ray was also consistent with pulmonary edema, so she was transferred to the intensive care unit. When I stopped by to see her, she was on hemodialysis machine, target is to pull off about 4 liters of ultrafiltrate. She was feeling a little bit better. When asked about tobacco use/abuse, she admits to about a [id number] tobacco smoking history and agreed to begin to try and stop smoking. That really is as much of the history of this presentation as I have. She denies any new onset of leg pain or swelling either unilaterally or bilaterally or any suggestion of venous thromboembolic phenomenon or DVT. PAST MEDICAL HISTORY: Again, significant for end-stage renal disease, on dialysis; diabetes; hypertension. PAST SURGICAL HISTORY: Actually, I believe she has a right upper extremity dialysis graft. MEDICATIONS: She was on at the time I stopped by to see her, according to the medication administration record, included the following: She was on Norvasc 10 mg p.o. daily, Coreg 12.5 mg p.o. b.i.d., Dilaudid 0.5 mg IV q.3h. p.r.n. severe pain, insulin via sliding scale, losartan 100 mg p.o. daily, nicardipine drip, I believe was going at 5 mg an hour, Zofran 4 mg IV q.6h. p.r.n. nausea and vomiting. ALLERGIES: No known drug allergies. DIET: Petite lady. Denies significant weight loss or gain in the preceding few weeks to months. FAMILY AND SOCIAL HISTORY: Lives in the community. She has about a [id number] tobacco smoking history. Denies alcohol or illicit drug use or abuse. Family history, otherwise noncontributory. REVIEW OF SYSTEMS: No loss of consciousness. No new onset seizures. No new onset focal weakness. No gross hematochezia or melena. No gross hematuria. She had emesis, no hematemesis. A 14 system review of systems obtained. Pertinent positives and/or negatives as in body of history above, otherwise they are noncontributory. PHYSICAL EXAMINATION: VITAL SIGNS: At presentation, she was afebrile, temperature 98.5, pulse was 116, respiratory rate was 24, blood pressure 242/121, oxygen sats were 96%, inspired oxygen concentration was not recorded. HEAD, EYES, EARS, NOSE, AND THROAT: Pupils are equal, round, about 3-4 mm, reactive to light. Extraocular muscle movements are intact. Oropharynx is a Mallampati #2 oropharynx with mild oropharyngeal pallor. Grossly, there were no palpable lymph nodes in the supraclavicular or submandibular lymph node chains. No gross jugular venous distention. LUNGS: Auscultation of both lung pelayo revealed fine inspiratory crackles in the bases, otherwise no wheezing. HEART: Heart sounds 1 and 2 are heard, regular rate and rhythm with a systolic ejection murmur at the time of my examination. ABDOMEN: Flat, soft, bowel sounds are positive, mildly tender diffusely. No masses palpated. EXTREMITIES: Without overt digital clubbing, cyanosis, or pedal edema. NEUROLOGIC: The exam was grossly nonfocal. LABORATORY DATA: From my review are as follows: Admission white cell count 11,500 with hemoglobin of 9.0, hematocrit of 28.7, and platelet count of 241. Serum sodium 136, potassium 4.7, chloride 94, bicarbonate 19, BUN 44, creatinine 7.9, glucose 395, alkaline phosphatase slightly elevated. Troponin was up at 0.209. Liver function tests essentially within normal limits otherwise. Lipase was up slightly 106. Urinalysis was negative for nitrites and leukocyte esterase. No microbiology studies for my review. Chest x-ray was done as well as a CT of the abdomen and pelvis. I am unable to pull up the films unfortunately. I did see the x-ray earlier, it does show bilateral pulmonary infiltrates, in my opinion more consistent with pulmonary edema. She also had cardiomegaly. There were no gross pneumothorax, no gross bony fractures, small pleural effusions. A CT of the abdomen and pelvis was done, no acute abnormalities in the lung bases. Unilateral right kidney. Otherwise, no specific pathology. ASSESSMENT AND PLAN: We have a young lady in with hypertensive urgency/emergency, probably an element of flash pulmonary edema. She denied any respiratory symptoms until coming into the hospital thereabouts. Respiratory ivey, she is actually off oxygen. Oxygen will be titrated to keep her sats greater than or equal to about 94%. Aspiration precautions will be maintained. She should do better after dialysis, after fluid has been pulled. Bronchodilators will be on a p.r.n. basis. From a cardiovascular standpoint, she has been titrated off the Cardene drip. I do expect her blood pressures also to be better post-dialysis. Acute coronary syndrome workup will be at the behest of the attending physician. I note the elevated troponin. A 12-lead EKG was done at admission and essentially was in sinus rhythm, no acute ST changes, but she has some nonspecific T-wave changes. From an infectious disease standpoint, no signs and symptoms of overwhelming sepsis. No acute indication for antibiotics. We will follow her clinically. From a renal standpoint, she is on dialysis right now. I will defer to the regasification plant operator. Electrolytes will be monitored and corrected as necessary. Inputs and outputs will be followed. From a GI and nutritional standpoint, she will be continued on p.r.n. Zofran. Aspiration precautions will be maintained. Sliding scale insulin will be continued. We are going to find out what her home insulin dosages and begin that long-acting insulin that is watch her clinically otherwise. From a HAND LASTER standpoint, the exam is grossly nonfocal. No acute indication for neuro imaging. We will follow her clinically. From a hematologic standpoint, she is going to be placed on DVT prophylaxis. Hemoglobin will be trended as necessary through the admission. From a general and hospital healthcare maintenance standpoint, she is going to be placed now on DVT prophylaxis as well as GI prophylaxis. Flu and pneumonia vaccination will be per protocol. Thank you very much for the consult Dr. Terry. We will follow along and make further recommendations as picture progresses/becomes clearer. She is critically ill on life-sustaining interventions including the Cardene drip at risk for further deterioration including . At this time, I spent about 30-35 minutes of critical care time without overlap. JOB# [id number] YENY/MICHELLE
[2017-01-30] MEDS ORDERED: PERCOCET 5/325 PO PRN (14:52)
[2017-01-30] MEDS ORDERED: DILAUDID IV PRN (14:53)
[2017-01-30] MEDS: APRESOLINE PO SCH ×2 (15:26→22:07)
[2017-01-30] MEDS ORDERED: COREG PO SCH ×2 (17:26→22:00)
--- NOTE | 2017-01-30 18:39 | Progress Note ---
Assessment and Plan Patient complaining nausea, vomiting and abdominal pain.No acute respiratory distress.O2 saturation 98% on room air. - Patient Problems (1) Pulmonary vascular congestion Current Visit: Yes Status: Acute Plan to address problem: Improving pulmonary vascular congestion. (2) Hypertensive urgency Current Visit: Yes Status: Acute Plan to address problem: Slowly improving. Present blood pressure 160/90 Management as per [facility] care. (3) ESRD (end stage renal disease) on dialysis Current Visit: Yes Status: Acute Plan to address problem: Management as per nephrology. Subjective Date of service: 01/30/17 Interval history: Patient complaining nausea, vomiting and abdominal pain.No acute respiratory distress.O2 saturation 98% on room air. Objective Vital Signs - 12hr 01/30/17 01/30/17 01/30/17 07:31 09:01 09:31 Temperature 98.7 F Pulse Rate 86 Pulse Rate [ From Monitor] Respiratory 20 16 16 Rate Blood Pressure 188/98 Blood Pressure [Left] O2 Sat by Pulse 97 Oximetry 01/30/17 01/30/17 01/30/17 10:00 10:59 11:09 Temperature Pulse Rate Pulse Rate [ 87 From Monitor] Respiratory Rate Blood Pressure 188/99 Blood Pressure [Left] O2 Sat by Pulse 100 Oximetry 01/30/17 01/30/17 01/30/17 11:10 11:15 11:34 Temperature Pulse Rate Pulse Rate [ From Monitor] Respiratory 18 Rate Blood Pressure 188/99 188/99 Blood Pressure [Left] O2 Sat by Pulse Oximetry 01/30/17 01/30/17 01/30/17 12:00 12:04 12:44 Temperature Pulse Rate 87 Pulse Rate [ From Monitor] Respiratory 20 20 Rate Blood Pressure Blood Pressure 226/120 [Left] O2 Sat by Pulse Oximetry 01/30/17 01/30/17 01/30/17 13:05 14:37 15:07 Temperature Pulse Rate Pulse Rate [ From Monitor] Respiratory 18 18 Rate Blood Pressure Blood Pressure 184/94 [Left] O2 Sat by Pulse Oximetry 01/30/17 01/30/17 15:26 15:46 Temperature 98.2 F Pulse Rate 94 H Pulse Rate [ From Monitor] Respiratory 20 Rate Blood Pressure 165/89 188/93 Blood Pressure [Left] O2 Sat by Pulse 98 Oximetry CBC and BMP: 01/29/17 12:26 01/29/17 12:26 Abnormal lab findings: Abnormal Labs 01/28/17 01/29/17 01/29/17 23:20 11:25 12:26 Hgb 9.4 L Hct 29.4 L Chloride BUN Creatinine Glucose POC Glucose 459 H Urine pH 8.0 H 01/29/17 01/29/17 01/29/17 12:26 17:02 21:48 Hgb Hct Chloride 97.5 L BUN 48 H Creatinine 7.8 H Glucose 145 H POC Glucose 209 H 278 H Urine pH 01/30/17 01/30/17 01/30/17 05:33 11:35 15:53 Hgb Hct Chloride BUN Creatinine Glucose POC Glucose 47 L 163 H 142 H Urine pH Chest x-ray: report reviewed (Cardiomegaly and pulmonary vascular congestion.), image reviewed
--- NOTE | 2017-01-30 19:09 | Progress Note ---
Assessment and Plan Assessment and plan: Malignant hypertension - Placed on a Cardizem drip on admission to titrate blood pressure below 1 60 x 90 - Also initiated losartan 100 MG daily, Coreg 12.5 by mouth twice a day and amlodipine 10 mg by mouth daily - Continue to monitor BP, weaned off Cardene drip this am - Adjust BP meds needed + hydralazine End stage renal disease on hemodialysis - Patient recently moved from [place] to [place] for 2 weeks visit - Does not have outpatient dialysis set up yet - Consulted nephrology for dialysis - Notified case technician for outpatient dialysis setup Elevated troponin - Likely secondary to decreased clearance from end-stage renal disease -Continue to trend, patient denies any chest pain - Monitor clinically Acute abdominal pain - likely from gastroparesis, CT abdomen and pelvis did not show any acute event - will place on reglan, continue to monitor for now Diabetes mellitus type 2 - Placed on an ADA diet - Start on sliding scale of insulin - Adjust insulin dose as needed DVT prophylaxis -Continue on heparin Brief history: This is a 31-year-old female with history of end stage renal disease on dialysis who recently moved from [place] presented to the hospital with sudden onset of abdominal pain, she also missed her dialysis for at least one week. History Interval history: c/o not feeling well, nauseated, "afraid to eat", c/o abd pain Hospitalist Physical - Constitutional Vitals: Temp Pulse Resp BP Pulse Ox 98.2 F 94 H 20 188/93 98 01/30/17 15:46 01/30/17 15:46 01/30/17 15:46 01/30/17 15:46 01/30/17 15:46 Results - Labs CBC & Chem 7: 01/29/17 12:26 01/29/17 12:26 Labs: Laboratory Last Values WBC 11.5 K/mm3 (4.5-11.0) H 01/28/17 16:37 RBC 3.15 M/mm3 (3.65-5.03) L 01/28/17 16:37 Hgb 9.4 gm/dl (10.1-14.3) L 01/29/17 12:26 Hct 29.4 % (30.3-42.9) L 01/29/17 12:26 MCV 91 fl (79-97) 01/28/17 16:37 MCH 29 pg (28-32) 01/28/17 16:37 MCHC 32 % (30-34) 01/28/17 16:37 RDW 14.1 % (13.2-15.2) 01/28/17 16:37 Plt Count 241 K/mm3 (140-440) 01/28/17 16:37 Lymph % (Auto) 9.2 % (13.4-35.0) L 01/28/17 16:37 [place] % (Auto) 4.3 % (0.0-7.3) 01/28/17 16:37 Eos % (Auto) 1.2 % (0.0-4.3) 01/28/17 16:37 Baso % (Auto) 0.8 % (0.0-1.8) 01/28/17 16:37 Lymph # 1.1 K/mm3 (1.2-5.4) L 01/28/17 16:37 [place] # 0.5 K/mm3 (0.0-0.8) 01/28/17 16:37 Eos # 0.1 K/mm3 (0.0-0.4) 01/28/17 16:37 Baso # 0.1 K/mm3 (0.0-0.1) 01/28/17 16:37 Seg Neutrophils % 84.5 % (40.0-70.0) H 01/28/17 16:37 Seg Neutrophils # 9.7 K/mm3 (1.8-7.7) H 01/28/17 16:37 Sodium 140 mmol/L (137-145) 01/29/17 12:26 Potassium 4.4 mmol/L (3.6-5.0) 01/29/17 12:26 Chloride 97.5 mmol/L (98-107) L 01/29/17 12:26 Carbon Dioxide 26 mmol/L (22-30) D 01/29/17 12:26 Anion Gap 21 mmol/L 01/29/17 12:26 BUN 48 mg/dL (7-17) H 01/29/17 12:26 Creatinine 7.8 mg/dL (0.7-1.2) H 01/29/17 12:26 Estimated GFR 7 ml/min 01/29/17 12:26 BUN/Creatinine Ratio 6.15 % 01/29/17 12:26 Glucose 145 mg/dL (65-100) H 01/29/17 12:26 POC Glucose 142 (70-105) H 01/30/17 15:53 Calcium 9.7 mg/dL (8.4-10.2) 01/29/17 12:26 Total Bilirubin 0.30 mg/dL (0.1-1.2) 01/28/17 15:07 AST 17 units/L (5-40) 01/28/17 15:07 ALT 24 units/L (7-56) 01/28/17 15:07 Alkaline Phosphatase 134 units/L (35-129) H 01/28/17 15:07 Troponin T 0.209 ng/mL (0.00-0.029) H* 01/28/17 16:37 Total Protein 6.5 g/dL (6.3-8.2) 01/28/17 15:07 Albumin 3.9 g/dL (3.9-5) 01/28/17 15:07 Albumin/Globulin Ratio 1.5 % 01/28/17 15:07 Triglycerides 193 mg/dL (2-149) H 01/28/17 16:37 Cholesterol 192 mg/dL (50-199) 01/28/17 16:37 LDL Cholesterol Direct 82 mg/dL (50-130) 01/28/17 16:37 HDL Cholesterol 72 mg/dL (40-59) H 01/28/17 16:37 Cholesterol/HDL Ratio 2.66 % 01/28/17 16:37 Lipase 106 units/L (13-60) H 01/28/17 15:07 HCG, Quant < 2 mIU/mL (0-4) 01/28/17 15:07 Urine Color Straw (Yellow) 01/29/17 11:25 Urine Turbidity Clear (Clear) 01/29/17 11:25 Urine pH 8.0 (5.0-7.0) H 01/29/17 11:25 Ur Specific [place] 1.010 (1.003-1.030) 01/29/17 11:25 Urine Protein >500 mg/dL (Negative) 01/29/17 11:25 Urine Glucose (UA) >=500 mg/dL (Negative) 01/29/17 11:25 Urine Ketones Tr mg/dL (Negative) 01/29/17 11:25 Urine Blood Neg (Negative) 01/29/17 11:25 Urine Nitrite Neg (Negative) 01/29/17 11:25 Urine Bilirubin Neg (Negative) 01/29/17 11:25 Urine Urobilinogen < 2.0 mg/dL (<2.0) 01/29/17 11:25 Ur Leukocyte Esterase Neg (Negative) 01/29/17 11:25 Urine WBC (Auto) 2.0 /HPF (0.0-6.0) 01/29/17 11:25 Urine RBC (Auto) 2.0 /HPF (0.0-6.0) 01/29/17 11:25 U Epithel Cells (Auto) 2.0 /HPF (0-13.0) 01/29/17 11:25 Urine Bacteria (Auto) 1+ /HPF (Negative) 01/29/17 11:25
[2017-01-30] MEDS ORDERED: PROTONIX PO SCH (22:00)
[2017-01-30] MEDS: LEVEMIR SUB-Q SCH (22:08)
[2017-01-31] MEDS: APRESOLINE PO SCH (05:28)
[2017-01-31] MEDS: NOVOLOG SUB-Q SCH (08:32)
--- NOTE | 2017-01-31 10:19 | Progress Note ---
Assessment and Plan 1. ESRD on HD 2, Malignant HTN 3. Fluid overload 4. Anemia of ESRD 5. Nausea/vomiting/ gastropharesis exacerbation 6. Abdominal pain Plan: HD on MWF schedule Epogen on dialysis D/c planning per primary team Subjective Date of service: 01/31/17 Interval history: N/V improving. Currently receiving dialysis Objective - Vital Signs Vital signs: Vital Signs - 12hr 01/30/17 01/30/17 01/31/17 23:33 23:52 04:02 Temperature 98.8 F 98.7 F Pulse Rate 103 H 103 H 91 H Respiratory 16 14 Rate Blood Pressure 241/118 241/118 177/89 O2 Sat by Pulse 93 100 Oximetry 01/31/17 01/31/17 01/31/17 05:28 07:27 09:45 Temperature 98.6 F Pulse Rate 91 H Respiratory 16 Rate Blood Pressure 177/89 164/89 O2 Sat by Pulse 100 Oximetry - General Appearance General appearance: well-developed, well-nourished, appears stated age EENT: PERRL, mucous membranes moist Neck: no JVD, no thyromegaly, no carotid bruit, supple Respiratory: Present: Clear to Ascultation Cardiology: regular, normal heart rate, S1S2, no murmurs Gastrointestinal: normoactive bowel sounds, no tenderness Integumentary: no rash, warm and dry Neurologic: no focal deficit, alert and oriented x3, reflexes 2+ and symmetric, gait normal, strength 5/5 Musculoskeletal: no deformities, no erythema, no cyanosis, no clubbing Psychiatric: mood/affect appropriate, cooperative - Lab 01/29/17 12:26 01/29/17 12:26 Most recent lab results Calcium 9.7 mg/dL (8.4-10.2) 01/29/17 12:26
--- NOTE | 2017-01-31 10:22 | Discharge Summary ---
Providers - Providers Date of Admission: 01/28/17 17:42 Date of discharge: 01/31/17 Attending physician: MICHELLE PATEL 01/28/17 20:20 Consult to Physician [CONS] Routine Consulting Provider: MARIA C SALGADO Reason For Exam: icu admission Place consult to:: call service Notified:: yes Primary care physician: OLGA HARRINGTON MD Hospitalization Condition: Stable Hospital course: Malignant hypertension - Placed on a Cardizem drip on admission to titrate blood pressure below 1 60 x 90 - Also initiated losartan 100 MG daily, Coreg 12.5 by mouth twice a day and amlodipine 10 mg by mouth daily - Continue to monitor BP, weaned off Cardene drip this am - Adjust BP meds needed + hydralazine End stage renal disease on hemodialysis - Patient recently moved from [place] to [place] for 2 weeks visit - Does not have outpatient dialysis set up yet - Consulted nephrology for dialysis - Notified case manager specialist for outpatient dialysis setup Elevated troponin - Likely secondary to decreased clearance from end-stage renal disease -Continue to trend, patient denies any chest pain - Monitor clinically Acute abdominal pain - likely from gastroparesis, CT abdomen and pelvis did not show any acute event - will place on reglan, continue to monitor for now Diabetes mellitus type 2 - Placed on an ADA diet - Start on sliding scale of insulin - Adjust insulin dose as needed DVT prophylaxis -Continue on heparin Brief history: This is a 31-year-old female with history of end stage renal disease on dialysis who recently moved from [place] presented to the hospital with sudden onset of abdominal pain, she also missed her dialysis for at least one week. Disposition: TO HOME OR SELFCARE Time spent for discharge: 35 min Core Measure Documentation - Palliative Care Palliative Care/ Comfort Measures: Not Applicable - Core Measures Any of the following diagnoses?: none Exam - Constitutional Vitals: Temp Pulse Resp BP Pulse Ox 98.6 F 91 H 16 164/89 100 01/31/17 07:27 01/31/17 05:28 01/31/17 07:27 01/31/17 07:27 01/31/17 09:45 Plan Activity: advance as tolerated Diet: low cholesterol, low salt, diabetic, renal Additional Instructions: F/u with per diem physical therapist at outpatient dialysis center Follow up with: PRIMARY CARE, [Primary Care Provider] - 3-5 Days Prescriptions: Insulin Glargine [Lantus VIAL] 30 unit SUB-Q QHS 30 Days amLODIPine [Norvasc] 10 mg PO QDAY #30 tablet Carvedilol [Coreg] 25 mg PO BID #60 tablet hydrALAZINE [Apresoline TAB] 50 mg PO Q8HR #180 tablet Insulin Lispro [HumaLOG VIAL] 10 units SQ AC 30 Days Losartan [Cozaar] 100 mg PO QDAY #30 tablet Ondansetron [Zofran TAB] 4 mg PO Q8HR PRN #20 tablet PRN Reason: Nausea oxyCODONE /ACETAMINOPHEN [Percocet 5/325 mg] 1 tab PO Q4H PRN #20 tablet PRN Reason: Pain, Moderate (4-6) Pantoprazole [Protonix TAB] 40 mg PO QDAY #30 tablet
[2017-01-31 12:57] VITALS: BP 168/88
== END 2017-01-31 14:35 | disposition home or self-care (01) | DRG 73 ==
LOC: ED 13:12 → 4A 17:42 → CC1 20:23 → 3A 01-29 15:58
PROVIDERS: ADMIT Internal Medicine; ATTEND Internal Medicine
PROC: 5A1D60Z (ICD-10-PCS; principal; 2017-01-29)
DX: E11.43 Type 2 diabetes mellitus with diabetic autonomic (poly)neuropathy (principal); N18.6 End stage renal disease; I16.1 Hypertensive emergency; I12.0 Hypertensive chronic kidney disease with stage 5 chronic kidney disease or end stage renal disease; R18.8 Other ascites; E87.70 Fluid overload, unspecified; K31.84 Gastroparesis; E11.22 Type 2 diabetes mellitus with diabetic chronic kidney disease; D63.1 Anemia in chronic kidney disease; R09.89 Other specified symptoms and signs involving the circulatory and respiratory systems; Z82.49 Family history of ischemic heart disease and other diseases of the circulatory system; Z99.2 Dependence on renal dialysis
CPT/HCPCS: 36415; 71010; 74176; 80048; 80053; 80061; 81001; 82962; 83690; 84484; 84702; 85014; 85018; 85025; 93005; 93010; 94760; J0360; J1170; J1200; J1630; J1644; J1815; J1818; J2405; J7050